=== PATIENT | male | born 1995 | race Caucasian/White ===

== ENCOUNTER → 2020-10-21 | Outpatient (CLI) | payer OTHER ==
--- NOTE | 2020-10-21 17:30 | RAD ---
PROCEDURE: XR EXAM OF ANKLE_LEFT 2V STUDY DATE: 10/21/2020 CLINICAL INDICATION / HISTORY: Reason: FOLLOW UP ANKLE REPAIR SURGERY / Spl. Instructions: / History : . TECHNIQUE: Left ankle 2 views. COMPARISON: None FINDINGS: The ankle mortise is approximated, and the talar dome is unremarkable. The joint space widt hs are maintained. No fracture or dislocation is identified. No soft tissue swelling is appreciated. IMPRESSION: No acute osseous abnormality. Electronically signed by: Rosalio Palumbo MD (10/21/2020 5:27 PM) [id number]
== END ==
LOC: DXRAD 15:37
PROVIDERS: ATTEND Physician Assistant
DX: Z98.890 Other specified postprocedural states (principal)
CPT/HCPCS: 73600

== ENCOUNTER → 2020-12-26 | Outpatient (CLI) | payer OTHER | LOC: LAB 11:17 | PROVIDERS: ATTEND Nurse Practitioner Family | DX: R79.89 Other specified abnormal findings of blood chemistry (principal) | CPT/HCPCS: 36415; 84484 ==

== ENCOUNTER → 2020-12-30 | Outpatient (CLI) | payer OTHER ==
--- NOTE | 2020-12-31 08:27 | RAD ---
Exam Date: 12/30/2020 1:55 PM XR EXAM OF ANKLE_LEFT 3V Indication: Reason: LEFT ANKLE PAIN / Spl. Instructions: / History: COMPARISON: October 21, 2020 FINDINGS/ IMPRESSION: Ankle mortise is intact. There is prominent soft tissue swelling laterally. No acute fracture or dislocation. Alignment and joint spaces are maintained. Electronically signed by: Av Theodore MD (12/31/2020 8:25 AM) [id number]
== END ==
LOC: RAD 13:42
PROVIDERS: ATTEND Physician Assistant
DX: M79.89 Other specified soft tissue disorders (principal); M25.572 Pain in left ankle and joints of left foot; Z98.890 Other specified postprocedural states
CPT/HCPCS: 73610

== ENCOUNTER → 2021-01-27 | Outpatient (CLI) | payer OTHER ==
--- NOTE | 2021-01-28 08:43 | RAD ---
EXAM: views of the left ankle DATE: 01/27/2021 2:03 PM INDICATION: Reason: ANKLE PAIN / Spl. Instructions: / History: COMPARISON: No Prior FINDINGS: No acute fracture or dislocation. Ankle mortise is congruent. Talar dome is intact. Joint spaces are preserved without significant degenerative/proliferative change. Moderate soft tissue swelling overly ing the lateral malleolus. IMPRESSION: No acute fracture or dislocation. Moderate soft tissue swelling overlying lateral malleolus. Electronically signed by: Jose Alfredo Mccallum MD (01/28/2021 8:41 AM) [id number]
== END ==
LOC: DXRAD 13:57
PROVIDERS: ATTEND Physician Assistant
DX: M79.89 Other specified soft tissue disorders (principal); M25.572 Pain in left ankle and joints of left foot; Z98.890 Other specified postprocedural states
CPT/HCPCS: 73610